=== PATIENT | male | born 1975 | race Caucasian/White ===

== ENCOUNTER 2018-10-10 11:04 | Emergency (ER) | payer BC ==
[2018-10-10] MEDS ORDERED: DIPH/PERTUSS(ACELL)/TETANUS VAC/PF 0.5 ML SYR (>=10YO) IM ONE (11:19)
--- NOTE | 2018-10-10 11:20 | ER Document Report ---
ED Medical Screen (RME) - General Chief Complaint: Laceration Stated Complaint: FINGER LACERATION Time Seen by Provider: 10/10/18 11:17 Mode of Arrival: Ambulatory Information source: Patient Notes: 43-year-old male presented to ED for complaint of laceration to the right index finger. He states he was cutting with a cutter grinder when he took the guard off the cutter grinder cutting his right index finger. He states it is pretty messed up. He states he does not remember when his last tetanus shot was so he will need one. He states his only medical history is a fractured wrist and he does not smoke drink or use any drugs but he does use a vapor cigarette. Patient is alert oriented respirations regular and unlabored speaking in full sentences walks with a even steady gait. I have greeted and performed a rapid initial assessment of this patient. A comprehensive ED assessment and evaluation of the patient, analysis of test results and completion of medical decision making process will be conducted by an additional ED providers. TRAVEL OUTSIDE OF THE [place] IN LAST 30 DAYS: No - Related Data Allergies/Adverse Reactions: No Known Allergies Allergy (Verified 10/10/18 11:06) Physical Exam - Vital signs Vitals: Temp Pulse Resp BP Pulse Ox 97.8 F 63 18 119/81 97 10/10/18 11:12 10/10/18 11:12 10/10/18 11:12 10/10/18 11:12 10/10/18 11:12 Course - Vital Signs Vital signs: Temp Pulse Resp BP Pulse Ox 97.8 F 63 18 119/81 97 10/10/18 11:12 10/10/18 11:12 10/10/18 11:12 10/10/18 11:12 10/10/18 11:12
--- NOTE | 2018-10-10 11:24 | ER Document Report ---
ED General - General Chief Complaint: Laceration Stated Complaint: FINGER LACERATION Time Seen by Provider: 10/10/18 11:17 Primary Care Provider: GOPI ACUNA MD [Primary Care Provider] - Follow up as needed TREVOR MUÑIZ DO [ACTIVE STAFF] - 10/12/18 (for ortho follow up) Mode of Arrival: Ambulatory TRAVEL OUTSIDE OF THE [place] IN LAST 30 DAYS: No - HPI Notes: 43-year-old male to the emergency department with complaints of a laceration to the back of his right index finger that occurred just prior to arrival. States that he was using a corn grinder at home when he removed the guard. States that his hand sewer slipped and he cut his finger. Patient states that he is right-hand dominant. He states that he cleaned the wound and applied some Neosporin before coming to the emergency department. He states that he does not seem to have loss of range of motion of the finger. He is unsure of his tetanus immunization. - Related Data Allergies/Adverse Reactions: No Known Allergies Allergy (Verified 10/10/18 11:06) Past Medical History - General Information source: Patient - Social History Smoking Status: Never Smoker Frequency of alcohol use: Recently quit alcohol 1 month ago Drug Abuse: None Lives with: Spouse/Significant other Family History: Reviewed & Not Pertinent Patient has suicidal ideation: No Patient has homicidal ideation: No Renal/ Medical History: Denies: Hx Peritoneal Dialysis Review of Systems - Review of Systems Constitutional: denies: Chills, Diaphoresis, Fever EENT: No symptoms reported Cardiovascular: denies: Chest pain, Palpitations, Dyspnea, Syncope, Dizziness, Lightheaded Respiratory: denies: Cough, Short of breath Gastrointestinal: denies: Abdominal pain, Diarrhea, Nausea, Vomiting Musculoskeletal: See HPI, Joint pain Skin: Other Hematologic/Lymphatic: No symptoms reported Neurological/Psychological: No symptoms reported. denies: Numbness, Tingling -: Yes All other systems reviewed and negative Physical Exam - Vital signs Vitals: Temp Pulse Resp BP Pulse Ox 97.8 F 63 18 119/81 97 10/10/18 11:12 10/10/18 11:12 10/10/18 11:12 10/10/18 11:12 10/10/18 11:12 Interpretation: Normal - General General appearance: Appears well In distress: None - HEENT Head: Normocephalic, Atraumatic Eyes: Normal Pupils: PERRL - Respiratory Respiratory status: No respiratory distress Chest status: Nontender Breath sounds: Normal Chest palpation: Normal - Cardiovascular Rhythm: Regular Heart sounds: Normal auscultation Murmur: No - Extremities Hand: Laceration - There is a laceration to the dorsum of the right index finger. It is approximately 3 cm in length. Bleeding is controlled. There is 5 out of 5 strength against resistance with testing of the right flexor digitorum longus, flexor digitorum superficialis, extensor digitorum to the right index finger. There does not appear to be a complete tendon laceration. There is no TTP over the remaining fingers and their strength is intact with 5/5 strength against resistance in flexion and extension. There is no tenderness to palpation of the right palm and dorsum of the hand. There is no TTP over the right wrist or right elbow. Cap refill is less than 2 sec. Radial pulses intact and equal. - Neurological Neuro grossly intact: Yes Cognition: Normal Orientation: AAOx4 [place] Coma Scale Eye Opening: Spontaneous [place] Coma Scale Verbal: Oriented [place] Coma Scale Motor: Obeys Commands [place] Coma Scale Total: 15 Speech: Normal Motor strength normal: LUE, RUE, LLE, RLE Sensory: Normal - Psychological Associated symptoms: Normal affect, Normal mood - Skin Skin Temperature: Warm Skin Moisture: Dry Skin Color: Normal Course - Re-evaluation Re-evalutation: 10/10/18 Finger X-Ray 10/10/18 11:18 IMPRESSION: No fracture or foreign body. 10/10/18 Impression: Right index finger laceration. Patient tolerated repair well. Does not appear to have an acute tendon laceration on exam. However wound was fairly deep. We will splint the finger have encouraged him to keep it splinted without fail until he sees orthopedist. His wound was very clean on arrival so do not think that he needs to have antibiotics. - Vital Signs Vital signs: Temp Pulse Resp BP Pulse Ox 97.7 F 55 L 16 126/80 H 97 10/10/18 13:13 10/10/18 13:13 10/10/18 13:13 10/10/18 13:13 10/10/18 13:13 - Diagnostic Test Radiology reviewed: Image reviewed, Reports reviewed Radiology results interpreted by me: 10/10/18 11:48 no acute fracture seen by myself. Procedures - Immobilization Right Finger 2nd digit Pre-Proc Neuro Vasc Exam: Normal Immobilizer type: Finger splint (Static) Performed by: PCT Post-Proc Neuro Vasc Exam: Normal Alignment checked and good: Yes - Laceration/Wound Repair Right Dorsal Finger 2nd digit Wound length (cm): 3 Wound's Depth, Shape: Other - to fascia layer Laceration pre-procedure: Sterile PPE donned, Betadine prep applied, Sterile drapes applied, Shur-Clens applied Anesthetic type: 1% Lidocaine Volume Anesthetic (mLs): 5 Wound explored: Clean, No foreign body removed Irrigated w/ Saline (mLs): 100 Wound Debrided: Minimal Wound Repaired With: Sutures Suture Size/Type: 5:0 Number of Sutures: 8 Layer Closure?: No Post-procedure wound care: Sterile dressing applied, Splint applied Post-procedure NV exam normal: Yes Complications: No Discharge - Discharge Clinical Impression: Finger laceration Qualifiers: Encounter type: initial encounter Finger: index finger Damage to nail status: without damage Foreign body presence: without foreign body Laterality: right Qualified Code(s): S61.210A - Laceration without foreign body of right index finger without damage to nail, initial encounter Condition: Stable Disposition: HOME, SELF-CARE Instructions: Laceration Care (OM) Additional Instructions: Follow-up with orthopedist without fail on Friday. Keep wound clean and dry. You may apply Neosporin to the wound after cleaning. Keep finger splinted without fail until seen by orthopedist. Failure to follow-up could lead to permanent dysfunction, disability, or pain. Return here if any worsening symptoms such as fever, redness, increasing pain, or any concerns. Prescriptions: Ibuprofen [Motrin 800 mg Tablet] 800 mg PO Q8H PRN #30 tab PRN Reason: Referrals: GOPI ACUNA MD [Primary Care Provider] - Follow up as needed TREVOR MUÑIZ DO [ACTIVE STAFF] - 10/12/18 (for ortho follow up)
[2018-10-10] MEDS ORDERED: LIDOCAINE 1% INJ-PF (10 MG/ML) 30 ML SDV INJ ONE (11:36)
--- NOTE | 2018-10-10 11:54 | RADIOLOGY REPORT (SQ) ---
EXAM DESCRIPTION: FINGER RIGHT COMPLETED DATE/TIME: 10/10/2018 11:33 am REASON FOR STUDY: Right index finger cut with grinder hand COMPARISON: None. NUMBER OF VIEWS: Three views. TECHNIQUE: AP, lateral, and oblique images acquired of the right second finger. LIMITATIONS: None. FINDINGS: MINERALIZATION: Normal. BONES: No acute fracture or dislocation. No worrisome bone lesions. SOFT TISSUES: No soft tissue swelling. No foreign body. OTHER: No other significant finding. IMPRESSION: No fracture or foreign body. COMMENT: SITE OF TRAUMA/COMPLAINT MARKED/STAMP COMPLETED: YES. TECHNICAL DOCUMENTATION: JOB ID: [id number] [employer]- All Rights Reserved Reading location - IP/workstation name: [email or web address]
[2018-10-10 13:16] VITALS: BP 126/80
== END 2018-10-10 13:20 | disposition home or self-care (01) ==
LOC: ER 11:04
DX: S61.210A Laceration without foreign body of right index finger without damage to nail, initial encounter (principal); W29.8XXA Contact with other powered hand tools and household machinery, initial encounter; Y92.009 Unspecified place in unspecified non-institutional (private) residence as the place of occurrence of the external cause; Z23 Encounter for immunization
CPT/HCPCS: 90471; 90715; 99283